=== PATIENT | male | born 1980 | race Caucasian/White ===

== ENCOUNTER → 2023-03-29 08:58 | Outpatient (BNVA) | payer OTHER, SELFPAY | PROVIDERS: PCP Internal Medicine; Visit Provider Physician Assistant Surgical ==

== ENCOUNTER 2023-05-14 13:22 | Outpatient (AMB) | payer OTHER, SELFPAY ==
--- NOTE | 2023-05-14 12:40 | A.OFFVIS_ITS ---
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 He heard about our program from his PCP. His goal is to lose weight and achieve a healthy lifestyle as well as to improve, if not resolve, obesity related medical conditions, including hypertension. He also has APL antibody so he is anticoag ulated to an INR of 3.2. He takes about 15 mg daily. He reports first being concerned about his weight 10 years ago, highest weight to date was 297. Current weight is 295 pounds with a BMI of 43.6. He has tried multiple methods of weight loss including exercise and fad diets without permanent results. He lives with his and 2 kids. 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 He wakes at:?6 am, and goes to bed at?10 pm. Dinner is at 630 pm. Breakfast: muffin or sausage egg and cheese on dominican muffin or bagel AM snack: skip Lunch: skip or leftovers PM snack: cookies, chips Dinner: take out, or restaurant After dinner: chips or cookies Other snacks: as above Liquids: 32-48 oz water, 3-4 cans diet coke daily, no juice Alcohol/marijuana/tobacco intake: none Exercise: none, rowing machine in his home, GERD score: 0 FARHAN score: 5 ESS score: 12 QOL score: 76 PFSH Medical History Depression Hypertension DVT (deep venous thrombosis) Lupus History of gallbladder disease Surgical History H/O colonoscopy Hx of cholecystectomy Hx of tonsillectomy Family History Mother No problems noted. Father No problems noted. Daughter Asthma Social History Alcohol intake: never Patient Tobacco Use Status: Never used Tobacco Review of Systems Const All systems reviewed & are unremarkable except as noted in HPI and below Assessment & Plan Assessment & Plan (1) Morbid obesity: Code(s): E66.01 - Morbid (severe) obesity due to excess calories Plan: This is a?42 yo male who will start our SWL program to prepare for bariatric surgery.? Blood work, h pylori , CXR, ECG, Abd US and UGI have been ordered. He is being scheduled for RD and BH initial consultations. He will start SWL classes and watch the first three videos before his next appointment. ? Adequate sleep of 7-8 hours per night discussed, awakening at 6 am and going to bed around 10 pm ? Purchase body composition analyzer scale (Adriáno recommended) and check weight weekly. The best time to do this is first thing in the morning after going to the bathroom. 1. Nutritional counseling: Be sure to careful read the number of scoops per shake Start with 2 Celebrate Rebuild protein shakes ([employer], [employer], [employer]ala[employer]), (2 scoops in 20 oz unsweetened almond milk) First shake at 7am-9am, Second shake at 10am-12pm 2 protein bars (Shirley Mae's bars at [employer], [employer], [employer]) First bar at 1pm-3pm. Dinner at 530-6pm (11 forks of protein and 11 forks of salad/vegetables). Meal to include lean meat (beef, fish, pork, turkey, chicken), cooked vegetables or a salad with olive oil and/or fruits (berries, pears, apples, kiwi). Avoid salt, breads, potatoes, rice, pasta, desserts. Another bar at 7pm-9pm. Try to drink 64 oz of water daily and avoid soda and juices. ?2. Each shake would be drunk slowly, like coffee in a period of 2 hours. ?3. Cut each bar in 4 pieces and eat each piece in 30 min ?to make each bar last 2 hours. ?4. I emphasized the importance of measuring accurately the food portion and measure it carefully when serving the food on the plate ?5. The meal portions include 11 full-size forks of meat and 11 full-size forks of salad. You always eat the meat portion but you can replace up to half of the forks of salad/vegetables with rice, potatoes or pasta, or a fruit ?if you like. The less you do it the better weight loss will be. ?6. One full-size fork is what can be scooped on the fork without falling aside and not what can be bit with the fork. Use regular forks like those you find in a typical restaurant. ?7.? Please send me weight measurements as soon as possible and then once a week. Always include your diet and exercise plan. Alternatively come weekly at the office for weight checks and send me the measurements. ?8. Exercise counseling: Begin by watching a stretching for beginners video. Start slowly and begin to stretch your muscles. You should do this before and after each exercise session to prevent injury. Please consider joining [employer] gym near your home. Ask the manager floor or one of the trainers how to use the machines if you are unfamiliar with them. Start elliptical with a resistance of 2. Increase resistance by 1 every 3 min to your most comfortable resistance with a max resistance of 8. Reduce the resistance by 1 every 3 minutes back down to 2 and repeat cycles for 300 calories. Alternatively, start treadmill with a speed of 3.0 and incline of 0, increasing incline by 1 every 3 minutes to the highest comfortable level (max 6 for now) then decrease in the sa me fashion. Repeat process to a goal of 300 calories. Goal of 2000 calories burned or more weekly. You may also consider use of the stationary bike. The easiest would be to chose the fat-burn or interval training program on the machine and do this until you reach the 300 calorie goal. Alternatively, you can manually adjust the resistance in a similar fashion as mentioned above, (resistance of 2-8 with a goal speed of 12 mph). Tracking calories is essential. 9. Alternatively start walking outside daily, tracking calories with a goal of 300 calories per day, daily. You can download the chuck Jumptap which can track your time, distance and calories while walking outside. You press start in the chuck when you start and then stop when you are finished. You can also use your rowing machine that you have in your home. Start with a resistance of 3 and increase the resistance by 1 every 5 minutes to a max resistance of 5. Stay at the resistance of 5 for 5 minutes and then decrease by 1 every 5 minutes back down to 3 and repeating the cycle until your workout calorie goal is met. Try to maintain a heart rate between 90 and 120 beats per minute. 10.? It is important to communicate weekly by text with me 11. Please get labs, EKG and chest X-Ray within 1 week. 12. Discussed and answered all questions regarding?obtained consent to participate in the [facility]?Registry. 13. Please follow the diet plan exactly, without any change. If you do not like something about the plan or you feel hungry, you need to communicate with me so I can help you revise the plan. You should not change the plan yourself. Text me at [phone] 14. Goal is to lose at least 12 pounds in the first month 15. Goal is to lose 10% of your weight before surgery, which is about 29 lbs. Ultimate weight goal: 266 lbs before surgery Patient is morbidly obese and is not considered stable at this time.?I spent a total of 70 minutes reviewing/updating records, examining the patient and counseling the patient on weight management as detailed above. Orders: Orders Insulin Today E66.01 - Morbid (severe) obesity due to excess calories, I10 - Essential (primary) hypertension Complete Blood Count Auto Diff Today E66.01 - Morbid (severe) obesity due to excess calories, I10 - Essential (primary) hypertension Zinc Today E66.01 - Morbid (severe) obesity due to excess calories, I10 - Essential (primary) hypertension Vitamin A Today E66.01 - Morbid (severe) obesity due to excess calories, I10 - Essential (primary) hypertension TSH reflex Free T4 Today E66.01 - Morbid (severe) obesity due to excess calories, I10 - Essential (primary) hypertension Ferritin Today E66.01 - Morbid (severe) obesity due to excess calories, I10 - Essential (primary) hypertension Vitamin D 25-OH Total Today E66.01 - Morbid (severe) obesity due to excess calories, I10 - Essential (primary) hypertension ECG 12 lead EKG Today E66.01 - Morbid (severe) obesity due to excess calories, I10 - Essential (primary) hypertension FL upper GI w air Today E66.01 - Morbid (severe) obesity due to excess calories, I10 - Essential (primary) hypertension Hemoglobin A1c Today E66.01 - Morbid (severe) obesity due to excess calories, I10 - Essential (primary) hypertension H Pylori Breath Test Today E66.01 - Morbid (severe) obesity due to excess calories, I10 - Essential (primary) hypertension Lipid Panel Today E66.01 - Morbid (severe) obesity due to excess calories, I10 - Essential (primary) hypertension IRON PROFILE Today E66.01 - Morbid (severe) obesity due to excess calories, I10 - Essential (primary) hypertension Comprehensive Met. Panel Today E66.01 - Morbid (severe) obesity due to excess calories, I10 - Essential (primary) hypertension Vitamin B12 and Folate Today E66.01 - Morbid (severe) obesity due to excess calories, I10 - Essential (primary) hypertension C Reactive Protein Today E66.01 - Morbid (severe) obesity due to excess calories, I10 - Essential (primary) hypertension Vitamin B1 Today E66.01 - Morbid (severe) obesity due to excess calories, I10 - Essential (primary) hypertension US abdomen comp w elastography Today E66.01 - Morbid (severe) obesity due to ex cess calories, I10 - Essential (primary) hypertension XR chest 2V Today E66.01 - Morbid (severe) obesity due to excess calories, I10 - Essential (primary) hypertension Referrals Behavioral Health Referral E66.01 - Morbid (severe) obesity due to excess calories, I10 - Essential (primary) hypertension Nutrition/Dietitian Referral E66.01 - Morbid (severe) obesity due to excess calories, I10 - Essential (primary) hypertension Telehealth Telehealth Location of provider rendering services: practice address Location of patient: address on file Patient Identification confirmed using: Name, : Yes Telehealth method: voice only Patient verbally consented to treatment: Yes Patient verbally consented to billing insurance company: Yes Patient informed of any privacy concerns related to visit: Yes Minutes spent on Phone/Video with Pt.: 40 Coding Level of Care Code Tele Est Pt Level 5 (87212) Diagnoses Morbid obesity E66.01 Time Spent (min) 70
[2023-05-14 13:01] VITALS: BMI 43.6
== END 2023-05-14 13:38 | disposition home or self-care (01) ==
LOC: HO.HBS 13:22
PROVIDERS: PCP Internal Medicine; Visit Provider Physician Assistant Surgical
DX: E66.01 Morbid (severe) obesity due to excess calories (principal); Z68.41 Body mass index [BMI] 40.0-44.9, adult
CPT/HCPCS: 99215

== ENCOUNTER → 2023-05-14 13:22 | Outpatient (BNVA) | payer OTHER, SELFPAY | PROVIDERS: PCP Internal Medicine; Visit Provider Physician Assistant Surgical | DX: E66.01 Morbid (severe) obesity due to excess calories (principal); I10 Essential (primary) hypertension ==

== ENCOUNTER 2023-05-27 14:06 | Outpatient (AMB) | payer OTHER, SELFPAY ==
--- NOTE | 2023-05-27 13:35 | A.OFFVIS_ITS ---
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 but always put the weight back on; 10# on herbalife (several months) Dietary counseling reduction Who buys your food spouse Who prepares/cooks your food spouse Meal frequency regular: breakfast (breakfast sandwich, muffin), dinner (take out often ) and snacks and irregular: lunch Lifestyle Eating out 4 or more times/week Food frequency Dairy: never, Fruit: never, Vegetables: never, Grains/pasta/breads/cereal (carbs): daily, Meats/poultry/fish (protein): daily, Meat substitutes/nuts/seeds/legumes: daily, Processed foods/meats: daily, Restaurants/fast foods: daily, Water: daily, Soda: daily (diet), Juice: never and Sports/energy drinks: daily Diagnosis Nutrition problem #1 overweight/obesity As related to (etiology) #1 excess energy intake and physical inactivity As evidenced by (sign/symptom) #1 high BMI Monitoring/Goals Nutrition problem monitoring total energy intake, level of knowledge/skill, total PRO intake and weight Outcome progress progressing Learning/Education Readiness to learn good Stages of change action Educational materials provided Yes Most Recent Diabetes Results: No Data to Display [facility] Medical History Depression Hypertension DVT (deep venous thrombosis) Lupus History of gallbladder disease Surgical History H/O colonoscopy Hx of cholecystectomy Hx of tonsillectomy Family History Mother No problems noted. Father No problems noted. Daughter Asthma Social History Alcohol intake: never Patient Tobacco Use Status: Never used Tobacco Assessment & Plan Assessment & Plan (1) Morbid obesity: Code(s): E66.01 - Morbid (severe) obesity due to excess calories Plan will be seen again. Pt requested to finish classes then call office back when completed to schedule nutrition appt Telehealth Telehealth Location of provider rendering services: practice address Location of patient: address on file Patient Identification confirmed using: Name, : Yes Telehealth method: video Patient verbally consented to treatment: Yes Patient verbally consented to billing insurance company: Yes Patient informed of any privacy concerns related to visit: Yes Minutes spent on Phone/Video with Pt.: 20 Coding Level of Care Code Nutr Indiv Intake (25880) Diagnoses Morbid obesity E66.01 Time Spent (min) 20
== END 2023-05-27 14:45 ==
LOC: HO.HBS 14:06
PROVIDERS: PCP Internal Medicine; Visit Provider Dietitian, Registered
DX: E66.01 Morbid (severe) obesity due to excess calories (principal)

== ENCOUNTER → 2023-05-27 14:06 | Outpatient (BNVA) | payer OTHER, SELFPAY | PROVIDERS: PCP Internal Medicine; Visit Provider Dietitian, Registered | DX: E66.01 Morbid (severe) obesity due to excess calories (principal); Z71.3 Dietary counseling and surveillance | CPT/HCPCS: 97802 ==

== ENCOUNTER 2023-05-31 09:17 | Outpatient (REF) | payer OTHER, SELFPAY ==
--- NOTE | ~2023-05-31 | XR_ITS ---
EXAMINATION: XR CHEST CLINICAL INFORMATION: Severe morbid obesity due to excess calories. COMPARISON: None available. TECHNIQUE: 2 views of the chest were obtained. FINDINGS: S-shaped thoracolumbar scoliosis with degenerative changes. Low lung volumes. Surgical clips in the right upper quadrant of the abdomen. There is no gross pneumothorax. Borderline cardiac enlargement. Possible moderate bibasilar opacities. Possible retrocardiac mass. XR/XR chest 2V IMPRESSION: Possible moderate bibasilar opacities. Possible retrocardiac mass. CT scan without intravenous contrast recommended for further evaluation. This study was presented today June 04, 2023 at 7:45 AM for interpretation. PSA staff will provide results to referring provider at this time.
[2023-05-31 09:33] LABS: MANUAL DIFF FLAG NO
--- NOTE | 2023-05-31 09:34 | ECG_ITS ---
Test Reason : OBESITY Blood Pressure : / mmHG Vent. Rate : 068 BPM Atrial Rate : 068 BPM P-R Int : 196 ms QRS Dur : 114 ms QT Int : 392 ms P-R-T Axes : 051 -04 028 degrees QTc Int : 416 ms Normal sinus rhythm Normal ECG No previous ECGs available Referred By: Reed Chery Electronically Signed By:EDGAR YOUNG
[2023-05-31 10:40] LABS: Basophils Percent Auto 0.3 % (0-2); Eosinophils Absolute Auto 0.1 X10*3/uL (0.0-0.4); Eosinophils Percent Auto 1.9 % (0-4); Hematocrit 46.6 % (42.0-52.0); Hemoglobin 16.2 g/dl (14.0-18.0); Imm Gran Abs Auto 0.04 X10*3/uL (0.00-0.03); Imm Gran Pct Auto 0.6 % (0.0-0.4); Lymphocytes Absolute Auto 1.8 X10*3/uL (1.2-4.9); Mean Corpuscular HGB Conc 34.8 g/dl (31.0-36.0); Mean Corpuscular Hemoglobin 31.1 pg (27.0-33.0); Mean Corpuscular Volume 89.4 fL (80.0-98.0); Mean Platelet Volume 10.6 fL (9.4-12.4); Monocytes Absolute Auto 0.5 X10*3/uL (0.1-1.2); Monocytes Percent Auto 8.2 % (2-11); Neutrophils Absolute Auto 3.8 x10*3/uL (2.0-8.3); Platelet Count 191 X10*3/uL (160-400); Red Blood Count 5.21 X10*6/uL (4.60-5.80); Red Cell Distribution Width 12.6 % (11.0-16.0); White Blood Count 6.3 X10*3/uL (4.8-10.8)
[2023-05-31 10:50] LABS: Estimated Average Glucose 91 mg/dL; Hemoglobin A1c % 4.8 % (<6.0)
[2023-05-31 13:09] LABS: Alanine Aminotransferase 105 U/L (0-40); Albumin Level 4.7 g/dL (3.5-5.0); Alkaline Phosphatase 97 U/L (39-117); Anion Gap 12 (12-20); Aspartate Amino Transferase 48 U/L (5-37); Bilirubin Total 0.7 mg/dL (0.0-1.0); Blood Urea Nitrogen 21 mg/dL (9-16); C Reactive Protein 1.05 mg/dL (< or = 0.50); Calcium 9.8 mg/dL (8.4-10.2); Carbon Dioxide 28 mmol/L (22-29); Chloride 104 mmol/L (96-108); Cholesterol 203 mg/dL (<200); Estimated Glomerular Filt Rate > 60; Glucose Random 78 mg/dL (60-115); HDL Cholesterol 28 mg/dL (>40); Iron 68 mcg/dL (45-160); LDL Cholesterol Calculated 145 mg/dL (<100); Percent Iron Saturation 25 % (15-50); Potassium 4.7 mmol/L (3.3-5.1); Sodium 139 mmol/L (135-145); Total Iron Binding Capacity 272 mcg/dL (228-428); Total Protein 7.7 g/dL (6.5-8.0); Triglycerides 150 mg/dL (<150); Unsaturated Iron Binding 204 ug/dL
[2023-05-31 13:38] LABS: Ferritin 184 ng/mL (20-250); Insulin 11 uU/mL (2-29)
[2023-05-31 14:35] LABS: Folate 5.2 ng/mL (> or = 4.0); Vitamin B12 1060 pg/mL (200-900)
[2023-06-04 01:53] LABS: Zinc 114 mcg/dL (60-130)
[2023-06-04 18:23] LABS: Vitamin A 42 mcg/dL (38-98)
[2023-06-07 06:24] LABS: Vitamin B1 7 nmol/L (8-30)
== END 2023-05-31 09:18 | disposition home or self-care (01) ==
LOC: HO.LAB 09:17
PROVIDERS: Visit Provider Physician Assistant Surgical
DX: E66.01 Morbid (severe) obesity due to excess calories (principal); I10 Essential (primary) hypertension
CPT/HCPCS: 36415; 71046; 80053; 80061; 82306; 82607; 82728; 82746; 83036; 83525; 83540; 84425; 84443; 84590; 84630; 85025; 86140; 93005

== ENCOUNTER → 2023-05-31 09:34 | Outpatient (BNV) | payer OTHER, SELFPAY | PROVIDERS: Visit Provider Internal Medicine | DX: I10 Essential (primary) hypertension (principal); E66.9 Obesity, unspecified | CPT/HCPCS: 93010 ==

== ENCOUNTER 2023-06-10 14:55 | Outpatient (AMB) | payer OTHER, SELFPAY ==
--- NOTE | 2023-06-10 08:27 | MHC.OFFVISWM ---
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 They were last seen in the office on 05/14/23, recorded weight at that time was 295 pounds, with a BMI of 43.6. Today's weight is 288.2 pounds and BMI is 42.7. There has been a weight loss of 6.8 pounds since initiating the surgical weight loss program on 05/14/23 with a total body weight loss of 2.3 %. Pre op work up completed as follows: SWL classes:? 06/20 BH appts: 06/11/23 ? ? RD appts: needs f/u Labs: 05/31/23-low D, B1 H. pylori: not yet done CXR: 06/04/23-question of bibasilar opacity, question of retrocardiac mass, CT scan without IV contrast recommended. EK05/31/2023-normal ABD U/S: 06/12/23 UGI: 07/26/23 The patient reports things are going very well. The patient does have a body composition scale. They also have been communicating weekly. Has not done much exercise formally yet. Additionally, he does report a cough for the last 4 months. He discuss this with his sports health club membership advisors and asthma Dr.. Current meal plan includes: 2 Celebrate Rebuild protein shakes, (2 scoops in 20 oz unsweetened almond milk) First shake at 7am-9am, Second shake at 10am-12pm 2 protein bars (Celebrate bars) First bar at 1pm-3pm. Dinner at 530-6pm (11 forks of protein and 11 forks of salad/vegetables). Another bar at 7pm-9pm. Drinking 48-64 oz of water Current exercise plan includes: has rowing machine at home but haven't used it yet. PFSH Medical History Depression Hypertension DVT (deep venous thrombosis) Lupus History of gallbladder disease Surgical History H/O colonoscopy Hx of cholecystectomy Hx of tonsillectomy Family History Mother No problems noted. Father No problems noted. Daughter Asthma Social History Alcohol intake: never Patient Tobacco Use Status: Never used Tobacco Physical Exam Vital Signs: BMI result Body Mass Index 42.6 Assessment & Plan Assessment & Plan (1) Morbid obesity: Code(s): E66.01 - Morbid (severe) obesity due to excess calories Plan: Encouraged to start exercising using his rowing machine, tracking calories with a goal of 300 per day, 7 days a week. We will have him return to the office in approximately 3 weeks. Additionally, we discussed the abnormalities on his labs and diagnostic imaging. Medications: New thiamine HCl (vitamin B1) 100 mg PO DAILY 90 days 90 tabs 0RF Telehealth Telehealth Location of provider rendering services: practice address Location of patient: address on file Patient Identification confirmed using: Name, : Yes Telehealth method: voice only Patient verbally consented to treatment: Yes Patient verbally consented to billing insurance company: Yes Patient informed of any privacy concerns related to visit: Yes Minutes spent on Phone/Video with Pt.: 20 Coding Level of Care Code Tele Est Pt Level 3 (44115) Diagnoses Morbid obesity E66.01 Time Spent (min) 20
[2023-06-10 08:31] VITALS: BMI 42.6
== END 2023-06-10 15:03 | disposition home or self-care (01) ==
LOC: HO.HBS 14:55
PROVIDERS: Visit Provider Physician Assistant Surgical
DX: E66.01 Morbid (severe) obesity due to excess calories (principal)
CPT/HCPCS: 99213

== ENCOUNTER → 2023-06-10 14:55 | Outpatient (BNVA) | payer OTHER, SELFPAY | PROVIDERS: Visit Provider Physician Assistant Surgical | DX: E66.01 Morbid (severe) obesity due to excess calories (principal) ==

== ENCOUNTER → 2023-06-11 15:19 | Outpatient (BNVA) | payer OTHER, SELFPAY | PROVIDERS: Visit Provider Counselor Mental Health ==

== ENCOUNTER 2023-06-12 07:55 | Outpatient (REF) | payer OTHER, SELFPAY ==
--- NOTE | ~2023-06-12 | US_ITS ---
EXAMINATION: US COMPLETE ABDOMEN WITH LIVER ELASTOGRAPHY CLINICAL INFORMATION: Morbid obesity. COMPARISON: None available. TECHNIQUE: Real-time imaging of the abdominal viscera. Noninvasive ultrasound liver fibrosis assessment is performed using Daphne ElastPQ point quantification shear wave elastography (2D-SWE) with a C5-2 MHz transducer. Multiple elastography samples are obtained. FINDINGS: PANCREAS: Normal. The visualized pancreatic head and body are normal in appearance. The remainder of the pancreas is obscured from visualization by the bowel gas. ABDOMINAL AORTA: The proximal, middle, and distal aortic segments are normal in caliber. INFERIOR VENA CAVA: Visualized portions are normal. LIVER: There is mild hepatomegaly. The liver demonstrates normal contour and generally increased echogenicity. No focal lesion or intrahepatic biliary duct dilatation. The right lobe measures 17.6 cm in length. The left lobe measures 10.4 cm in length. Portal flow is towards the liver (hepatopetal). Shear wave liver elastography median stiffness is 1.2 m/s (reference: normal median stiffness is 1.3 m/s or less). IQR/median stiffness to assess sampling precision is 0.15 (reference: good quality data set is IQR/median stiffness of 0.15 or less). GALLBLADDER: Surgically absent. COMMON BILE DUCT: Normal in caliber measuring 0.3 cm in diameter. RIGHT KIDNEY: Normal. No hydronephrosis. No renal calculi or focal parenchymal lesions. The kidney measures 12.0 cm in maximum dimension. LEFT KIDNEY: Normal. No hydronephrosis. No renal calculi or focal parenchymal lesions. The kidney measures 11.6 cm in maximum dimension. SPLEEN: No focal finding. The spleen measures 15.3 cm in maximum dimension. FREE FLUID: None. US/US abdomen comp w elastography IMPRESSION: 1. There is mild hepatosplenomegaly 2. There is generalized increase in hepatic echotexture, consistent with fatty infiltration or hepatocellular disease. Please correlate clinically. No focal hepatic mass or intrahepatic biliary dilatation is seen. 3. Liver elastography: Measurements are consistent with a high probability of normal liver stiffness. 4. The gallbladder is surgically absent. REFERENCE: Society of Radiologists in Ultrasound Liver Stiffness Thresholds (2020): LIVER STIFFNESS THRESHOLDS: *Liver Stiffness equal or less than 1.3 m/s: High probability of being normal. *Liver Stiffness less than 1.7 m/s: In the absence of other known clinical signs, rules out compensated advanced chronic liver disease. *Liver Stiffness 1.7-2.1 m/s: Suggestive of compensated advanced chronic liver disease but need further test for confirmation. *Liver Stiffness over 2.1 m/s: Rules in compensated advanced chronic liver disease. *Liver Stiffness over 2.4 m/s: Suggestive of clinically significant portal hypertension. QUALITY OF DATA SET: *IQR/Median value equal or less than 0.15 implies a quality data set. *IQR/Median value over 0.15 implies a poor quality data set. SIGNIFICANT CHANGE FROM PRIOR EXAM: Significant change if liver stiffness measurement is 10% or greater from prior exam. OTHER CONSIDERATIONS: The stage of liver fibrosis may be overestimated in the setting of acute hepatitis, liver inflammation, elevated liver function tests, hepatic vascular congestion, obstructive cholestasis, non-fasting state, and infiltrative diseases such as amyloidosis and lymphoma. In some patients with NAFLD, the liver stiffness thresholds for compensated advanced chronic liver disease may be lower. In causes other than viral hepatitis and NAFLD, liver stiffness thresholds are not well established.
--- NOTE | ~2023-06-12 | CT_ITS ---
EXAMINATION: CT CHEST WITHOUT CONTRAST CLINICAL INFORMATION: Possible retrocardiac mass on recent wrist radiographs COMPARISON: 05/31/2023 chest radiograph. TECHNIQUE: Multidetector volumetric CT imaging of the chest was done. Axial MIP volume rendering provided. Sagittal and coronal reformatted images were obtained. This CT examination was performed using dose optimization techniques as appropriate, variously including the following: *Automated exposure control *Adjustment of mA and/or kV according to patient size (this includes techniques or standardized protocols for targeted exams where dose is matched to indication/reason for exam; i.e. extremities or head) *Use of iterative reconstruction technique DLP: 337 mGy-cm FINDINGS: TRANSPORT SPECIALIST: No acute cardiopulmonary disease. Cholecystectomy clips. LUNGS: Trachea and bronchi are patent. No consolidations,, groundglass opacities, nodules or masses. MEDIASTINUM: Unremarkable thyroid. Nonspecific mediastinal lymph nodes. No pathologic lymphadenopathy. Nonenlarged heart. CORONARY ARTERY CALCIFICATION: Cardiac stents versus moderate coronary calcifications. PLEURA: There is no pleural effusion. No pleural mass or thickening. AXILLA: No lymphadenopathy. UPPER ABDOMEN: Diffuse hypoattenuation to liver. Prominent spleen measuring 15.7 cm. Status post cholecystectomy. OSSEOUS STRUCTURES: Mild degenerative changes. No suspicious osseous lesions. CT/CT chest wo IV con IMPRESSION: No CT evidence of retrocardiac mass as questioned on recent chest radiograph. No acute intrathoracic pathology. Cardiac stents and/or coronary calcifications, either noteworthy given patient's young stated age. Correlate clinically and with history. Hepatic steatosis and splenomegaly. Fleischner guidelines were followed.
== END 2023-06-12 07:56 | disposition home or self-care (01) ==
LOC: HO.US 07:55
PROVIDERS: Visit Provider Physician Assistant Surgical
DX: E66.01 Morbid (severe) obesity due to excess calories (principal); I10 Essential (primary) hypertension; R93.89 Abnormal findings on diagnostic imaging of other specified body structures
CPT/HCPCS: 71250; 76700; 76981

== ENCOUNTER 2023-06-25 09:00 | Outpatient (AMB) | payer OTHER, SELFPAY ==
--- NOTE | 2023-06-25 08:39 | A.OFFVIS_ITS ---
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 They were last seen in the office on 06/10/23, recorded weight at that time was 288.2 pounds, with a BMI of 42.6. Today's weight is 282 pounds and BMI is 41.6. There has been a weight loss of 13 pounds since initiating the surgical weight loss program on 05/14/23 with a total body weight loss of 4.4 %. Pre op work up completed as follows: SWL classes:? 06/20 BH appts: f/u 06/25/23 ? ? RD appts: needs f/u Labs: 05/31/23-low D, B1 H. pylori: not yet done CXR: 06/04/23-question of bibasilar opacity, question of retrocardiac mass, CT scan without IV contrast -06/12/23-coronary calcification without pulmonary abnormality EK05/31/2023-normal ABD U/S: 06/12/23-fatty liver UGI: 07/26/23 The patient reports things are going very well. The patient does have a body composition scale. He tested positive for covid although he is able to follow the meal plan. Current meal plan includes: 2 Celebrate Rebuild protein shakes, (2 s coops in 20 oz unsweetened almond milk) First shake at 7am-9am, Second shake at 10am-12pm 2 protein bars (Celebrate bars) First bar at 1pm-3pm. Dinner at 530-6pm (11 forks of protein and 11 forks of salad/vegetables). Another bar at 7pm-9pm. Drinking 80-96 oz of water Current exercise plan includes: has rowing machine at home but haven't used it yet. PFSH Medical History Depression Hypertension DVT (deep venous thrombosis) Lupus History of gallbladder disease Surgical History H/O colonoscopy Hx of cholecystectomy Hx of tonsillectomy Family History Mother No problems noted. Father No problems noted. Daughter Asthma Social History Alcohol intake: never Patient Tobacco Use Status: Never used Tobacco Assessment & Plan Assessment & Plan (1) Morbid obesity: Code(s): E66.01 - Morbid (severe) obesity due to excess calories Plan: Making progress communicating weekly will change meal plan: 2 Celebrate Rebuild protein shakes, (2 scoops in 20 oz unsweetened almond milk) First shake at 7am-9am, Second shake at 10am-12pm 2 protein bars (Celebrate bars) First bar at 1pm-3pm. Dinner at 530-6pm (9 forks of protein and 9 forks of salad/vegetables). Another bar at 7pm-9pm. encouraged to get rowing machine running and start reminded of BH appt today will schedule RD and H Pylori rtc 3-4 weeks Telehealth Telehealth Location of provider rendering services: practice address Location of patient: address on file Patient Identification confirmed using: Name, : Yes Telehealth method: voice only Patient verbally consented to treatment: Yes Patient verbally consented to billing insurance company: Yes Patient informed of any privacy concerns related to visit: Yes Minutes spent on Phone/Video with Pt.: 10 Coding Level of Care Code Tele Est Pt Level 3 (45130) Diagnoses Morbid obesity E66.01 Time Spent (min) 15
[2023-06-25 08:42] VITALS: BMI 41.6
== END 2023-06-25 09:07 | disposition home or self-care (01) ==
LOC: HO.HBS 09:07
PROVIDERS: Visit Provider Physician Assistant Surgical
DX: E66.01 Morbid (severe) obesity due to excess calories (principal)
CPT/HCPCS: 99213

== ENCOUNTER → 2023-06-25 09:00 | Outpatient (BNVA) | payer OTHER, SELFPAY | PROVIDERS: Visit Provider Physician Assistant Surgical ==

== ENCOUNTER 2023-06-25 13:12 | Outpatient (AMB) | payer OTHER, SELFPAY ==
--- NOTE | 2023-06-25 14:08 | A.OFFWM_ITS ---
Intake Intake Visit Reasons: VIDEO F/U Allergies sulfamethoxazole [From Bactrim] Allergy (Mild, Verified 03/29/23 09:18) Hives trimethoprim [From Bactrim] Allergy (Mild, Verified 03/29/23 09:18) Hives [facility] Medical History Depression Hypertension DVT (deep venous thrombosis) Lupus History of gallbladder disease Surgical History H/O colonoscopy Hx of cholecystectomy Hx of tonsillectomy Family History Mother No problems noted. Father No problems noted. Daughter Asthma Social History Alcohol intake: never Patient Tobacco Use Status: Never used Tobacco Behavioral Health Assessment Weight Management Therapy Therapy Notes Details Today patient reported that things are going well, no issues. some work related stress. Pt is looking to have weight loss surgery to help improve his health and quality of life. He reported being asthmatic as a child and had to steroids early on. He denied any mental health tx history however his PCP has him on medication for depression 4 years ago. He has never been in therapy and has no history of any problems with drugs or alcohol. Presenting Concerns Referral Source provider Reason for referral weight loss surgery evaluation Precipitating Event obesity Living Situation Current Living Situation Own At risk of losing current housing? No Satisfied with current living situation? Yes Comments Pt lives with his and his 24 year old daughter and 12 year old son (adopted nephew). Food/Weight/Diet Expectations of change weight loss and maintenance History/Relationship with food Pt stated that he would have a muffin in the morning or egg sandwich, frequent ordering out, snacking during the day and after dinner. Also some boredom eating, snacking while watching TV, larger portions at dinner, skipping meals during the day. History/Relationship with weight Pt stated that he has struggled with his weight his whole life. He stated that he very easily gains weight History/Relationship with dieting He stated that he has lost weight several times and then will quickly and easily gain it back. Used herbalife and personal injury law specialist in the past. Binge Eating Do you frequently eat large amounts of food in short periods of time, not feeling physically hungry? No Do you feel out of control when you eat a large amount of food in a short period of time? No Do you eat large amounts of food rapidly and typically alone? Yes Night Eating Do you wake up at least once during the night to eat? No If you wake up in the night, do you find that it is necessary to eat something in order to fall back asleep? No Do you have little or no appetite in the morning and feel very hungry in the evening, often overeating between dinner and when you go to bed? Yes Social History Family history and relationship Pt is and has two children. His 12 year old is his biological nephew who he adopted. His had GBP any years ago. Pt was [place] and raised in this area, his parents were early on, he has one biological brother, half sister and a step brother. 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 none Education Highest grade completed high school Preferred learning style Auditory, Verbal, Written, Learn by doing and Visual Currently enrolled in educational program? No Interested in further educational program? 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 No Meaningful activities watching TV, no hobbies Financial Situation Describe current financial situation Occasional struggle Financial assistance? None Service Service? No Mental Health and Addiction Treatment Current/Past substance abuse? No Current/Past addictive behavior concerns? No Medical and Physical Health Summary Physical exam in the last year? Yes Pain Screening Current pain? No Pain in the last few months? No Medications Is the patient compliant with medications? Yes Does the patient have Crawford Guardian in place? Not applicable Does the patient use complimentary health approaches? No Trauma/Abuse History History of trauma? No Assessment & Plan Assessment & Plan (1) Major depressive disorder, recurrent, moderate: Code(s): F33.1 - Major depressive disorder, recurrent, moderate (2) Morbid obesity: Code(s): E66.01 - Morbid (severe) obesity due to excess calories Plan Patient reports doing well and has no difficulties at this time. He is cleared for surgery when ready. Telehealth Telehealth Location of provider rendering services: other Location of patient: address on file Patient Identification confirmed using: Name, : Yes Telehealth method: voice only Patient verbally consented to treatment: Yes Patient verbally consented to billing insurance company: Yes Patient informed of any privacy concerns related to visit: Yes Minutes spent on Phone/Video with Pt.: 20 Coding Level of Care Code Tele Psytx 30 mins (79065) Diagnoses Major depressive disorder, recurrent, moderate F33.1 Morbid obesity E66.01 Time Spent (min) 20
== END 2023-06-25 14:08 | disposition home or self-care (01) ==
LOC: HO.HBST 13:12
PROVIDERS: Visit Provider Counselor Mental Health
DX: F33.1 Major depressive disorder, recurrent, moderate (principal); E66.01 Morbid (severe) obesity due to excess calories
CPT/HCPCS: 90832

== ENCOUNTER 2023-07-10 09:42 | Outpatient (AMB) | payer OTHER, SELFPAY ==
--- NOTE | 2023-07-10 10:00 | A.OFFVIS_ITS ---
Intake Intake Visit Reasons: (OV) F/U SWL + H Pylori Refinish Technician Required: No Allergies sulfamethoxazole [From Bactrim] Allergy (Mild, Verified 03/29/23 09:18) Hives trimethoprim [From Bactrim] Allergy (Mild, Verified 03/29/23 09:18) Hives HPI Nutrition Presentation Reason for consult elevated BMI Diet Assmnt Details pt states program nutrition plan going very well , happy with everything . Does not like the recipes in the recipe book, too complex. Looking for simple ideas. provided some more resources. His had bariatric surgery 17 years ago GBP Classes: working on them Previous weight loss methods attempted gym and personal vehicle advisor but always put the weight back on; 10# on herbalife (several months) Dietary counseling reduction Diagnosis Nutrition problem #1 overweight/obesity As related to (etiology) #1 excess energy intake and physical inactivity As evidenced by (sign/symptom) #1 high BMI Monitoring/Goals Nutrition problem monitoring total energy intake, level of knowledge/skill, total PRO intake and weight Outcome progress progressing Learning/Education Readiness to learn good Stages of change action Educational materials provided Yes Most Recent Diabetes Results: Cholesterol 203 mg/dL (<200) H 05/31/23 HDL Cholesterol 28 mg/dL (>40) L 05/31/23 Triglycerides 150 mg/dL (<150) H 05/31/23 Creatinine 0.99 mg/dL (0.5-1.4) 05/31/23 Blood Urea Nitrogen 21 mg/dL (9-16) H 05/31/23 Sodium 139 mmol/L (135-145) 05/31/23 Potassium 4.7 mmol/L (3.3-5.1) 05/31/23 Chloride 104 mmol/L (96-108) 05/31/23 Carbon Dioxide 28 mmol/L (22-29) 05/31/23 Calcium 9.8 mg/dL (8.4-10.2) 05/31/23 AST 48 U/L (5-37) H 05/31/23 ALT 105 U/L (0-40) H 05/31/23 Total Protein 7.7 g/dL (6.5-8.0) 05/31/23 Albumin 4.7 g/dL (3.5-5.0) 05/31/23 [facility] Medical History Depression Hypertension DVT (deep venous thrombosis) Lupus History of gallbladder disease Surgical History H/O colonoscopy Hx of cholecystectomy Hx of tonsillectomy Family History Mother No problems noted. Father No problems noted. Daughter Asthma Social History Alcohol intake: never Patient Tobacco Use Status: Never used Tobacco Assessment & Plan Assessment & Plan (1) Morbid obesity: Code(s): E66.01 - Morbid (severe) obesity due to excess calories Plan Nutrition follow up 07/24 at 1:30 TV after completing classes for review. Coding Level of Care Code Nutr Indiv Subseq (32810) Diagnoses Morbid obesity E66.01 Time Spent (min) 20
== END 2023-07-10 10:24 | disposition home or self-care (01) ==
PROVIDERS: Visit Provider Dietitian, Registered
DX: E66.01 Morbid (severe) obesity due to excess calories (principal)

== ENCOUNTER 2023-07-10 09:42 | Outpatient (REF) | payer OTHER, SELFPAY ==
[2023-07-11 11:43] LABS: H Pylori Breath Test Negative (Negative)
== END 2023-07-10 09:43 | disposition home or self-care (01) ==
LOC: HO.LNP 09:42
PROVIDERS: Visit Provider Physician Assistant Surgical
DX: E66.01 Morbid (severe) obesity due to excess calories (principal); I10 Essential (primary) hypertension
CPT/HCPCS: 83013; 97803; 99211

== ENCOUNTER 2023-07-25 13:44 | Outpatient (AMB) | payer OTHER, SELFPAY ==
--- NOTE | 2023-07-25 13:38 | MHC.AMNUTRGE ---
Intake VS Expanded 07/25/23 13:47 Height 5 ft 9 in Weight 275 lb BMI 40.6 Intake Visit Reasons: (TV) F/U SWL Insurance Biller Required: No Allergies sulfamethoxazole [From Bactrim] Allergy (Mild, Verified 03/29/23 09:18) Hives trimethoprim [From Bactrim] Allergy (Mild, Verified 03/29/23 09:18) Hives HPI Nutrition Presentation Details INDEPENDENT LIVING ADVISOR weight 03/29/23 297# current weight 275# Reason for consult elevated BMI Diet Assmnt Details pt states program nutrition plan going very well , happy with everything but getting bored of the shakes already. has been choosing more bars. Encouraged he discuss with PA other options so he is able to have shakes post op His had bariatric surgery 17 years ago GBP Classes: 12/18 completed, reviewed Previous weight loss methods attempted gym and interpersonal communications professor but always put the weight back on; 10# on herbalife (several months) Dietary counseling reduction Diagnosis Nutrition problem #1 overweight/obesity As related to (etiology) #1 excess energy intake and physical inactivity As evidenced by (sign/symptom) #1 high BMI Monitoring/Goals Nutrition problem monitoring total energy intake, level of knowledge/skill, total PRO intake and weight Outcome progress progressing Learning/Education Readiness to learn good Stages of change action Educational materials provided Yes Most Recent Diabetes Results: Cholesterol 203 mg/dL (<200) H 05/31/23 HDL Cholesterol 28 mg/dL (>40) L 05/31/23 Triglycerides 150 mg/dL (<150) H 05/31/23 Creatinine 0.99 mg/dL (0.5-1.4) 05/31/23 Blood Urea Nitrogen 21 mg/dL (9-16) H 05/31/23 Sodium 139 mmol/L (135-145) 05/31/23 Potassium 4.7 mmol/L (3.3-5.1) 05/31/23 Chloride 104 mmol/L (96-108) 05/31/23 Carbon Dioxide 28 mmol/L (22-29) 05/31/23 Calcium 9.8 mg/dL (8.4-10.2) 05/31/23 AST 48 U/L (5-37) H 05/31/23 ALT 105 U/L (0-40) H 05/31/23 Total Protein 7.7 g/dL (6.5-8.0) 05/31/23 Albumin 4.7 g/dL (3.5-5.0) 05/31/23 PFSH Medical History Depression Hypertension DVT (deep venous thrombosis) Lupus History of gallbladder disease Surgical History H/O colonoscopy Hx of cholecystectomy Hx of tonsillectomy Family History Mother No problems noted. Father No problems noted. Daughter Asthma Social History Alcohol intake: never Patient Tobacco Use Status: Never used Tobacco Assessment & Plan Assessment & Plan (1) Morbid obesity: Code(s): E66.01 - Morbid (severe) obesity due to excess calories Plan Pt is cleared from a nutrition standpoint for bariatric surgery . reviewed classes Telehealth Telehealth Location of provider rendering services: other (home address, [facility] ) Location of patient: address on file Patient Identification confirmed using: Name, : Yes Telehealth method: voice only Patient verbally consented to treatment: Yes Patient verbally consented to billing insurance company: Yes Patient informed of any privacy concerns related to visit: Yes Minutes spent on Phone/Video with Pt.: 15 Coding Level of Care Code Nutr Indiv Subseq (01193) Diagnoses Morbid obesity E66.01 Time Spent (min) 15
[2023-07-25 13:47] VITALS: BMI 40.6
== END 2023-07-25 13:49 | disposition home or self-care (01) ==
LOC: HO.HBS 13:44
PROVIDERS: Visit Provider Dietitian, Registered
DX: E66.01 Morbid (severe) obesity due to excess calories (principal)

== ENCOUNTER → 2023-07-25 13:44 | Outpatient (BNVA) | payer OTHER, SELFPAY | PROVIDERS: Visit Provider Dietitian, Registered | DX: E66.01 Morbid (severe) obesity due to excess calories (principal); Z68.41 Body mass index [BMI] 40.0-44.9, adult; Z71.3 Dietary counseling and surveillance | CPT/HCPCS: 97803 ==

== ENCOUNTER 2023-07-26 07:46 | Outpatient (REF) | payer OTHER, SELFPAY ==
--- NOTE | ~2023-07-26 | FL_ITS ---
EXAMINATION: XR FLUOROSCOPY UPPER GI WITH AIR CLINICAL INFORMATION: Preop evaluation prior to bariatric surgery COMPARISON: None TECHNIQUE: Fluoroscopic air contrast upper GI examination was performed utilizing standard techniques with thin and thick barium and effervescent granules. Numerous spot images were obtained. FINDINGS: Dual and single contrast images of the esophagus demonstrate normal caliber, contour, and mucosal pattern. No evidence of stricture, mass, or ulcerations identified. Esophageal peristalsis was normal. A nonobstructing Schatzki's ring is present ([id number] 195/229) A small type I hiatal hernia is present. Gastroesophageal reflux is seen up to the thoracic inlet. Dual contrast and single contrast images of the stomach demonstrated a normal contour. The gastric mucosal folds appear thickened. No evidence of mass or ulcerations. Contrast freely passed into the gastric antrum and duodenal bulb without delay. Single and air-contrast images of the duodenal bulb demonstrate no abnormality. The duodenal sweep has a normal appearance, course, and mucosal fold appearance. The imaged proximal jejunum has a normal fold pattern and caliber. FLUOROSCOPY TIME: 3 minutes 9 seconds Number of Spot Images: 17 Number of Cine: 6 DOSE AREA PRODUCT: 2900 uGy-m2 (microgray-meter squared) FL/FL upper GI w air IMPRESSION: 1. Nonobstructing Schatzki's ring 2. Small type I hiatal hernia 3. Moderate gastroesophageal reflux 4. Thickened gastric mucosal folds likely representing gastritis. Recommend correlation with EGD. This procedure was performed by Anthony Pisano PA-C, and supervised by Dr. Pierce
== END 2023-07-26 07:47 | disposition home or self-care (01) ==
LOC: HO.XRAY 07:46
PROVIDERS: Visit Provider Physician Assistant Surgical
DX: E66.01 Morbid (severe) obesity due to excess calories (principal); I10 Essential (primary) hypertension
CPT/HCPCS: 74246

== ENCOUNTER → 2023-07-26 07:48 | Outpatient (BNV) | payer OTHER, SELFPAY | PROVIDERS: Visit Provider Physician Assistant Surgical | DX: E66.01 Morbid (severe) obesity due to excess calories (principal); Z01.818 Encounter for other preprocedural examination | CPT/HCPCS: 74246 ==

== ENCOUNTER 2023-08-07 12:45 | Outpatient (AMB) | payer OTHER, SELFPAY ==
--- NOTE | 2023-08-07 10:48 | A.OFFVIS_ITS ---
Intake VS Expanded 08/07/23 10:51 Height 5 ft 9 in Weight 273 lb 3.2 oz BMI 40.3 Body Fat % 43.1 Body Fat Mass 117.7 Fat Free Mass 155.4 Visceral Fat Rating 22 Body Water % 41.1 Body Water Mass 112.2 Muscle Mass/Score 147.8 Basal Metabolic Rate/Score 1,868 Intake Visit Reasons: TV F/U SWL Allergies sulfamethoxazole [From Bactrim] Allergy (Mild, Verified 03/29/23 09:18) Hives trimethoprim [From Bactrim] Allergy (Mild, Verified 03/29/23 09:18) Hives HPI HPI Comments History of Present Illness Details The patient is a pleasant 42 year old male who returns to the clinic for pre-operative surgical weight loss management. They were last seen in the office on 06/25/23, recorded weight at that time was 282 pounds, with a BMI of 41.6. Today's weight is 273.2 pounds and BMI is 40.3. There has been a weight loss of 21.8 pounds since initiating the surgical weight loss program on 05/14/23 with a total body weight loss of 7.38 %. Pre op work up completed as follows: SWL classes:? 12/18 BH appts: cleared-06/25/23 ? ? RD appts: cleared-07/25/23 Labs: 05/31/23-low D, B1 H. pylori: not yet done CXR: 06/04/23-question of bibasilar opacity, question of retrocardiac mass, CT scan without IV contrast -06/12/23-coronary calcification without pulmonary abnormality EK05/31/2023-normal ABD U/S: 06/12/23-fatty liver UGI: 07/26/23-gerd, small HH The patient reports things are going very well. The patient does have a body composition scale. He states he is lazy and has no drive or motivation to exercise. No problem with the meal plan. He is not sure if his depression is better with the effexor. He will discuss with his PCP. Does not have BH therapist. Would prefer less shakes, likes the bars. Current meal plan includes: 2 Celebrate Rebuild protein shakes, (2 s coops in 20 oz unsweetened almond milk) First shake at 7am-9am, Second shake at 10am-12pm 2 protein bars (Celebrate bars) First bar at 1pm-3pm. Dinner at 530-6pm (9 forks of protein and 9 forks of salad/vegetables). Another bar at 7pm-9pm. 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 PFSH Medical History Depression Hypertension DVT (deep venous thrombosis) Lupus History of gallbladder disease Surgical History H/O colonoscopy Hx of cholecystectomy Hx of tonsillectomy Family History Mother No problems noted. Father No problems noted. Daughter Asthma Social History Alcohol intake: never Patient Tobacco Use Status: Never used Tobacco Assessment & Plan Assessment & Plan (1) Morbid obesity: Code(s): E66.01 - Morbid (severe) obesity due to excess calories Plan: Encouraged to add in the exercise, critical to success. Change meal plan slightly: 1 Celebrate Rebuild protein shakes, (2 scoops in 20 oz unsweetened almond milk) First shake at 7am-9am, 3 protein bars (Celebrate bars) First bar at 10am-12pm Second bar at 1pm-3pm. Dinner at 530-6pm (8 forks of protein and 8 forks of salad/vegetables). Another bar at 7pm-9pm. rtc 3-4 weeks Telehealth Telehealth Location of provider rendering services: practice address Location of patient: address on file Patient Identification confirmed using: Name, : Yes Telehealth method: voice only Patient verbally consented to treatment: Yes Patient verbally consented to billing insurance company: Yes Patient informed of any privacy concerns related to visit: Yes Minutes spent on Phone/Video with Pt.: 15 Coding Level of Care Code Tele Est Pt Level 3 (47675) Diagnoses Morbid obesity E66.01 Time Spent (min) 18
[2023-08-07 10:51] VITALS: BMI 40.3
== END 2023-08-07 12:51 | disposition home or self-care (01) ==
LOC: HO.HBS 12:45
PROVIDERS: Visit Provider Physician Assistant Surgical
DX: E66.01 Morbid (severe) obesity due to excess calories (principal)
CPT/HCPCS: 99213

== ENCOUNTER → 2023-08-07 12:45 | Outpatient (BNVA) | payer OTHER, SELFPAY | PROVIDERS: Visit Provider Physician Assistant Surgical ==